=== PATIENT | male | born 1985 | race Caucasian/White ===

== ENCOUNTER 2021-03-11 00:09 | Day surgery (SDC) | payer OTHER, SELFPAY ==
[2021-03-05 11:37] VITALS: BMI 32.3
--- NOTE | 2021-03-05 11:43 | PC.NURSE ---
Report to the Outpatient Waiting Room, entrance under the green pavilion located off [facility], at time 1130 on date 03/11/21. OR Time: 1330. - You will be asked a series of questions to screen for COVID 19 for your protection. - A mask is required within the hospital. - No visitors are allowed at this time. Preoperative COVID Testing Requirements: No COVID Test needed if: (proof is required; if not received patient will have Rapid Test prior to entry) - Patient has received COVID Vaccine at least 14 days prior to procedure date or - Patient has positive COVID test result within last 90 days of surgery date. COVID Test needed if above criteria is not met Patients may have clear liquids (water, carbonated beverages, clear teas, apple juice) until 3 hours prior to surgery with a maximum of 20 ounces. - No food from midnight until time of surgery Take the following medications with a SIP of water the morning of surgery: NONE Medications to discontinue per physician: N/A Date to take last dose: N/A Please no make-up, nail syriac, hairspray, perfume, deodorant, or body powder the day of surgery. No jewelry (including any body piercings) or valuables the day of surgery, leave them at home. Please take a shower or bath the night before, or the morning of, surgery with an antibacterial soap. Wear comfortable, loose fitting clothing. - Jewelry must be removed prior to entering the operating room. Rings and piercings that are not removed may be cut off. - The hospital will not accept responsibility for valuables. - Please leave all valuables, including medications, at home the day of surgery. If you are going home after surgery, a licensed non emergency services ambulance driver must drive you home. - NO public transportation without another adult. - We recommend that an adult stay with you for 24 hours following discharge. - We also recommend that you do not drive, make important decision, drink alcoholic beverages, or take any drugs that were not prescribed by your health care provider for at least 24 hours after your discharge time. Follow any additional instructions given to you from your surgeon. Telephone instructions given to ALONZO NEWBY and asked if any additional questions and then verbalized understanding. Patient advised to call surgeon office or pre surgery nurse liaison [phone] if any additional questions.
[2021-03-11] VITALS (7 sets, daily range): BP systolic 108–139; BP diastolic 69–91; PULSE 71–99; RESP 14–18; TEMP 36.4–36.5; O2SAT 95–98
--- NOTE | 2021-03-11 06:51 | P.PNAN_ITS ---
Anes - Initial Pre Proc Eval Procedure: Operation Date: 03/11/21 13:30 Proposed Procedures p CO2 Laser Penile Condyloma - Dc Machado MD s Bilateral Vasectomy - Dc Machado MD Date/Time: 03/11/21 06:51 Surgeon: Dc Machado MD Pre Op Diagnosis: lesion of penis, sterilization Patient Data Age: 35 Gender: M Height: 1.68 m Weight: 90.72 kg Allergies Allergy/AdvReac Type Severity Reaction Status Date / Time sulfamethoxazole Allergy Mild Rash Unverified 03/11/21 12:00 trimethoprim Allergy Mild Rash Unverified 03/11/21 12:00 Home Medications Medication Instructions Recorded Confirmed Type No Home Medications 03/05/21 03/11/21 History Patient hx anesthesia problems: none Family hx anesthesia problems: none Results Review: All pre-operative results and documents have been reviewed as part of the pre-operative evaluation. [facility] Social History Social History Smoking packs per day: 0.75 Smoking cigarettes per day: 15.0 Years smoked: 15 Smoking pack-years: 11.25 Smoking status: Former smoker Tobacco type: cigarettes Smoking end date: 03/01/20 Additional smoking assessment comments: NOW CHEWING NICOTINE GUM Alcohol intake: current Drinks per week: 12 Substance use: current Substance use type: marijuana Last use: 03/03/21 Living arrangements: with family Spiritual care concerns: No Anes - Eval Final PreProcedure Day of Procedure 03/11/21 06:51 Patient weight: obese Heart: regular rate and rhythm Lungs: clear to auscultation and normal air movement Airway: Mallampati scale class II Neurological: alert and oriented Last oral intake: >/= 8 hours ASA classification: II Emergent: no Anesthetic plan: proceed Anesthesia type and monitoring: general LMA and standard monitoring Results Review: All pre-operative results and documents have been reviewed as pa rt of the pre-operative evaluation. Informed Consent: The patient's anesthetic plan and its attendant risks and benefits were discussed with the patient/family/POA. Questions were solicited and answers provided to the satisfaction of the patient/family/POA.
--- NOTE | 2021-03-11 12:09 | WPDHPUPDATE1 ---
History and Physical Update Update Date/Time: 03/11/21 12:09 History and Physical has been reviewed, including an updated exam of the patient. There are NO changes in the patient's condition. Risks, benefits, and alternatives have been discussed and questions answered. Patient agrees to proceed with procedure. Proceed with co2 laser of penile condyloma
--- NOTE | 2021-03-11 12:10 | WPDHPUPDATE1 ---
History and Physical Update Update Date/Time: 03/11/21 12:10 History and Physical has been reviewed, including an updated exam of the patient. There are NO changes in the patient's condition. Risks, benefits, and alternatives have been discussed and questions answered. Patient agrees to proceed with procedure.
[2021-03-11] MEDS: LACTATED RINGERS 1,000 ML 30 ML IV CONT (12:22)
[2021-03-11] MEDS: ceFAZolin 2 GM/D5W 50 ML 2 GM/50 ML BAG IVPB (13:10)
[2021-03-11] MEDS: BACITRACIN OINTMENT 15 GM TUBE 1 APPLIC TOPICAL (13:44)
--- NOTE | 2021-03-11 13:56 | W.PM.PROC2 ---
Procedure Note - Detailed Date of Procedure 03/11/21 Pre-op Diagnosis lesion of penis, sterilization Post-op Diagnosis same Procedure Performed Bilateral vasectomy, CO2 laser penile condyloma Surgeon Dc Machado MD Anesthesia general Description of Procedure Patient is taken to the operative suite and correctly identified. Once anesthesia was obtained was prepped draped usual sterile fashion. Bilateral vasectomies was performed through a midline scrotal incision. The vas were isolated. Seven was excised. The ends were fulgurated ligated and buried. 1% lidocaine was used anesthetize the cord. 3-0 chromic was used to close the skin. We then proceeded do CO2 laser the penile condyloma at a power setting of 4-5. We scraped off all of the lasered tissue. There was no residual condylomata noted he had approximately 10-12 lesions which were fulgurated anywhere from 1-2 mm up to 7-8 mm in size. Antibiotic ointment was placed over the lesions. Tolerated procedure well was taken recovery stable condition. Drains No Packing No Pathology none sent Complications No immediate complications Condition stable Disposition PACU
--- NOTE | 2021-03-11 16:00 | SUR.PHASEII ---
2 URINE CONTAINERS GIVEN TO PATIENT FOR SEMEN SPECIMENS.
== END 2021-03-11 15:30 | disposition home or self-care (01) ==
PROVIDERS: PCP Nurse Practitioner; Visit Provider Urology
PROC: (CPT 55250; principal; 2021-03-11 13:30)
PROC: (CPT 55250; 2021-03-11 13:30)
DX: Z30.2 Encounter for sterilization (principal); A63.0 Anogenital (venereal) warts; F12.90 Cannabis use, unspecified, uncomplicated; F17.211 Nicotine dependence, cigarettes, in remission; E66.9 Obesity, unspecified; Z68.32 Body mass index [BMI] 32.0-32.9, adult
CPT/HCPCS: 55250; 54065; 88300; A9270; J0690; J1100; J2250; J2405; J2704; J3010; J7120